=== PATIENT | male | born 1990 | race Caucasian/White ===

== ENCOUNTER 2019-12-25 09:03 | Emergency (ER) | payer OTHER, MEDICAID ==
[~2019-12-25] VITALS: Ht 167.6 cm; Wt 127.5 kg
[2019-12-25 09:12] VITALS: BP 132/58; Ht 167.6 cm; Wt 127.5 kg
== END 2019-12-25 09:37 | disposition home or self-care (01) ==
LOC: ED 09:03
DX: M54.2 Cervicalgia (principal); S00.83XA Contusion of other part of head, initial encounter; V49.49XA Driver injured in collision with other motor vehicles in traffic accident, initial encounter; Y93.I9 Activity, other involving external motion; Y92.488 Other paved roadways as the place of occurrence of the external cause; Y99.8 Other external cause status

== ENCOUNTER 2019-12-30 11:13 | Emergency (ER) | payer OTHER, MEDICAID ==
[~2019-12-30] VITALS: Ht 170.2 cm; Wt 127.0 kg
[2019-12-30 11:22] VITALS: Ht 170.2 cm; Wt 127.0 kg
[2019-12-30 12:42] VITALS: BP 97/60
== END 2019-12-30 12:42 | disposition home or self-care (01) ==
LOC: ED 11:13
DX: S20.211D Contusion of right front wall of thorax, subsequent encounter (principal); V43.02XD Car driver injured in collision with other type car in nontraffic accident, subsequent encounter
CPT/HCPCS: J1885